=== PATIENT | female | born 1935 | race Two or more races ===

== ENCOUNTER 2017-02-12 23:14 | Inpatient (IN) | payer MEDICARE, BC ==
[~2017-02-12] VITALS: Ht 157.5 cm; Wt 50.8 kg
--- NOTE | 2017-02-12 23:25 | NUR ---
To bed 5 a 81 yo female bibra for increasing aloc x1. Upon arrival to er, patient is noted to be drowsy, arousable to name/verbal and tactile stimuli. Able to answer some questions and follow simple commands. Noted with o2 saturation on room at 91%. Encouraged patient to do breathing exercises, placed on o2 cannula inhalation at 2lpm per Dr Dickey's verbal order, satting at 98%. kept hob elevated. cardiac monitoring on. Safety measures in place. Comfort measures rendered. Gowned. Dr Dickey at bedside for eval.
[2017-02-12] MEDS ORDERED: IV NS 0.9% 500 ML BAG IV ONE (23:30)
[2017-02-12] MEDS ORDERED: IV SET PRIMARY 1 EA INFUS.SET MC ONE (23:31)
[2017-02-12] MEDS ORDERED: IV NS 0.9% 500 ML IV ONE (23:31)
--- NOTE | 2017-02-12 23:34 | NUR ---
Patient noted with left portacath, intact, patent, with good blood back flow. Blood samples collected and sent to lab.
--- NOTE | 2017-02-12 23:45 | NUR ---
urine collected via clean catch and called lab for clam picker.
[2017-02-12 23:52] LABS: HEMATOCRIT 28 % (33-45); HEMOGLOBIN 9.4 g/dL (11.5-14.8); LYMPHOCYTES # (AUTO) 0.3 /CMM (0.8-4.8); LYMPHOCYTES % (AUTO) 3.3 % (20.0-44.0); MEAN CORPUSCULAR HEMOGLOBIN 29 PG (26.0-33.0); MEAN CORPUSCULAR HGB CONC 33 g/dl (31.0-36.0); MEAN CORPUSCULAR VOLUME 85 fL (82-100); MONOCYTES # (AUTO) 0.3 /CMM (0.1-1.30); MONOCYTES % (AUTO) 2.9 % (2.0-12.0); NEUTROPHILS # (AUTO) 8.6 /CMM (1.8-8.9); NEUTROPHILS % (AUTO) 93.8 % (43.0-81.0); PLATELET COUNT (AUTO) 174 /CMM (150-450); RDW COEFFICIENT OF VARIATION 22.5 (11.5-15.0); RED BLOOD CELL COUNT(AUTO) 3.29 MIL/uL (4.0-5.2); WHITE BLOOD COUNT (AUTO) 9.2 K/uL (4.3-11.0)
[2017-02-13] VITALS (13 sets, daily range): BP systolic 85–125; BP diastolic 30–77
[2017-02-13 00:02] LABS: CARBON DIOXIDE 26 mmol/L (21-32); CHLORIDE 100 mmol/L (98-107); CREATININE 2.1 mg/dL (0.6-1.3); GLUCOSE 131 mg/dL (74-106); POTASSIUM 3.5 mmol/L (3.5-5.1); SODIUM SERUM 135 mmol/L (136-145); UREA NITROGEN, BLOOD 72 mg/dL (7-18)
[2017-02-13 00:05] LABS: INR 1.16 (0.87-1.13); PROTHROMBIN TIME 12.5 SECS (9.5-12.7)
[2017-02-13 00:09] LABS: ALANINE AMINOTRANSFERASE 31 U/L (12-78); ALBUMIN 2.2 g/dL (3.4-5.0); ALKALINE PHOSPHATASE 65 U/L (46-116); ASPARTATE AMINOTRANSFERASE 27 U/L (15-37); BILIRUBIN,DIRECT 0.1 mg/dL (0.0-0.2); BILIRUBIN,TOTAL 0.3 mg/dL (0.2-1.0)
[2017-02-13 00:11] LABS: TROPONIN I < 0.017 ng/mL (0.00-0.056)
[2017-02-13] MEDS ORDERED: IV NS 0.9% 1,000 ML ONE (00:20)
[2017-02-13] MEDS ORDERED: IV NS 0.9% 1,000 ML BAG IV ONE (00:30)
[2017-02-13 00:38] LABS: APPEARANCE,URINE CLOUDY (CLEAR); BILIRUBIN,URINE NEGATIVE (NEGATIVE); BLOOD, URINE 2+ Ery/uL (NEGATIVE); COLOR,URINE YELLOW (YELLOW); KETONES,URINE NEGATIVE (NEGATIVE); PH,URINE 5.5 (5.0-8.0); PROTEIN,URINE 2+ mg/dl (NEGATIVE); UGLUCOSE TRACE mg/dL (NEGATIVE)
[2017-02-13 00:39] LABS: LEUKOCYTE ESTERASE ,URINE 1+ (NEGATIVE); NITRITE, URINE NEGATIVE (NEGATIVE); UROBILINOGEN,URINE 0.2 EU/dL (0.2)
[2017-02-13 00:41] LABS: BACTERIA,URINE 4+ /HPF (None Seen); SQUAMOUS EPITHELIAL CELL,UR Few /HPF (None Seen); WBC,URINE 81-100 /HPF (0-3)
[2017-02-13] MEDS ORDERED: CEFTRIAXONE 1GM BAG (ER ONLY) 50 ML IV ONE (00:46)
[2017-02-13] MEDS ORDERED: IV SET PRIMARY PUMP SET 1 EA INFUS.SET MC ONE ×2 (00:47→03:06)
[2017-02-13] MEDS ORDERED: CEFTRIAXONE 1 G in IV D5W 50 ML IV ONE (01:00)
[2017-02-13] MEDS ORDERED: CARV6.252 PO (01:10)
[2017-02-13] MEDS ORDERED: ONDA4TAB8 SL (01:10)
[2017-02-13] MEDS ORDERED: FURO-144 PO (01:10)
[2017-02-13] MEDS ORDERED: WARF5TAB6 PO (01:10)
[2017-02-13] MEDS ORDERED: ACET-868 PO (01:10)
[2017-02-13] MEDS ORDERED: LACT1CAP89 PO (01:10)
[2017-02-13] MEDS ORDERED: CEFU250S PO (01:10)
[2017-02-13] MEDS ORDERED: PHEN-704 PO (01:10)
[2017-02-13] MEDS ORDERED: ESOM40CA PO (01:10)
--- NOTE | 2017-02-13 01:13 | NUR ---
Report Seema NEFF for admission and brendon.
--- NOTE | 2017-02-13 01:33 | NUR ---
Transported to tele bed 310-2 via als protocol, no incident noted. Seema NEFF at bedside.
--- NOTE | 2017-02-13 01:35 | NUR ---
RN NOTES ADMITTED A 81 YEARS OLD FEMALE PT FROM ER [facility]IA [facility] WITH PRIMARY DIAGNOSIS OF UTI UNDER DR CUETO. PT ALERT AND ORIENTED X2 WITH PERIODS OF CONFUSION. NO SOB, NOT IN DISTRESS, ON O2 INHALATION AT 2LPM VIA NC AND TOLERATED WELL. VITAL SIGNS STABLE, DENIES ANY PAIN AND DISCOMFORT AT THIS TIME. ATTACHED TO TELEMONITOR WHICH READS SINUS RHYTHM WITH HEART RATE AT 90. SKIN AND BODY ASSESSMENT DONE, WITH PICTURES TAKEN AND FILED IN THE CHART. SEEN AND EXAMINED BY DR CUETO, WITH ADMISSION ORDERS MADE AND CARRIED OUT. KEPT PT COMFORTABLE AND ATTENDED. ON RENAL DIET AND TOLERATED WELL. SAFETY MEASURES IN PLACE. WILL CONTINUE TO MONITOR PT.
[2017-02-13] MEDS ORDERED: HYDROCODONE/APAP 5/325MG 1 EACH TABLET PO PRN (02:00)
[2017-02-13] MEDS ORDERED: Z GUARD REMEDY 2 OZ OINT TP PRN (02:00)
[2017-02-13] MEDS ORDERED: CEFTRIAXONE 1 G in IV D5W 50 ML IV SCH (02:00)
[2017-02-13] MEDS ORDERED: MAGNESIUM HYDROXIDE 30 ML UDC PO PRN (02:00)
[2017-02-13] MEDS ORDERED: MAG HYDROX/AL HYDROX/SIMETH 30 ML UDC PO PRN (02:00)
[2017-02-13] MEDS ORDERED: ZOLPIDEM TARTRATE 5 MG TABLET PO PRN (02:00)
[2017-02-13] MEDS ORDERED: ACETAMINOPHEN 325 MG TABLET PO PRN (02:00)
[2017-02-13] MEDS ORDERED: ONDANSETRON HCL/PF 4 MG/2 ML VIAL IVP PRN (02:00)
--- NOTE | 2017-02-13 02:09 | NUR ---
RN NOTES ROCEPHIN 1GM DUE AT 0200 NOT ADMINISTERED, IT WAS GIVEN TO THE PT WHILE SHE'S STILL IN ER.
[2017-02-13] MEDS: IV NS 0.9% 1,000 ML IV PRN ×4 (03:16→23:33)
--- NOTE | 2017-02-13 07:11 | NUR ---
RN NOTES PT ASLEEP, BREATHING REGULAR AND UNLABORED, ON O2 INHALATION AT 2LPM VIA NC AND TOLERATED WELL. VITAL SIGNS STABLE, AFEBRILE. TELE MONITOR READS SINUS RHYTHM WITH HEART RATE AT 89. NO COMPLAIN OF PAIN, NO EPISODE OF NAUSEA AND VOMITING. PT CALM, QUIET AND COOPERATIVE WITH CARE. ASSISTED TO THE BATHROOM, WITH STEADY GAIT. SAFETY MEASURES IN PLACE. ALL NEEDS MET. WILL ENDORSE TO MORNING RN FOR CONTINUITY OF CARE.
--- NOTE | 2017-02-13 07:30 | NUR ---
AM RN NOTE Received patient sleeping comfortably in her bed arouses upon touch, no acute distress noted. On O 2 2L/min via NC resp even and non-labored. Skin warm and dry to touch. Bed in low locked position. Will continue to monitor.
[2017-02-13] MEDS: PANTOPRAZOLE 40 MG TABLET.DR PO SCH (08:36)
[2017-02-13] MEDS: CARVEDILOL 6.25 MG TABLET PO SCH ×2 (08:37→16:53)
[2017-02-13] MEDS ORDERED: WARFARIN SODIUM 5 MG TABLET PO SCH (09:00)
--- NOTE | 2017-02-13 11:24 | NUR ---
WOUND CARE CONSULT: PT PRESENTS WITH EDEMA TO LOWER EXTREMITIES. PT INCONTINENT. PT ON NATALIE PRESSURE REDISTRIBUTION MATTRESS. ALL SKIN PROTECTION RECOMMENDATIONS DISCUSSED WITH NURSING STAFF. IN AGREEMENT WITH PLAN OF CARE. Addendum: 02/13/17 at 1126 by NAI LOVE WNDNU Amended: Links added.
--- NOTE | 2017-02-13 13:29 | NUR ---
AM RN NOTE Per Gallito PATIENT AMBASSADOR no PT/1NR lab order needed for today. Continue same dose of Coumadin as ordered with PT/INR done yesterday (02/12/17).
[2017-02-13] MEDS: WARFARIN SODIUM 5 MG TABLET PO SCH (16:54)
--- NOTE | 2017-02-13 18:19 | NUR ---
AM RN NOTE Patient lying in her bed, no acute distress noted. LCW cath intact and patent. Bed in low locked position. Will continue to monitor.
--- NOTE | 2017-02-13 19:18 | NUR ---
AM RN NOTE Duplex order placed STAT per Joanna (Tech).
--- NOTE | 2017-02-13 19:30 | NUR ---
MS/RN OPENING NOTES PT ASLEEP, AROUSABLE. ON ROOM AIR, BREATHING EVEN AND UNLABORED. NO S/S OF DISTRESS NOTED. DENIES PAIN AT THIS TIME. IV TO LCW PATENT AND INTACT RUNNING IVF ORDERED. BED IN LOW/LOCKED POSITION WITH CALL LIGHT IN REACH. BED RAILS UPX2. WILL CONTINUE TO MONITOR
--- NOTE | 2017-02-13 20:33 | NUR ---
MS/RN NOTES PAGED DR. CUETO TO NOTIFY HIM OF THE RESULTS OF THE BLOOD CULTURE. AWAITING CALL BACK.
--- NOTE | 2017-02-13 20:38 | NUR ---
MS/RN NOTES SPOKE TO DR. CUETO ABOUT PT'S RESULTED BLOOD CULTURE. INFORMED HIM THAT SHE IS RECEIVING ROCEPHIN 1G AND IS CURRENTLY AFEBRILE. NO NEW ORDERS AT THIS TIME. JUST CONTINUE ROCEPHIN.
--- NOTE | 2017-02-13 20:58 | NUR ---
MS/RN NOTES TECH COMPLETED VENOUS DUPLEX OF RIGHT LOWER EXTREMITY
--- NOTE | 2017-02-13 22:24 | NUR ---
MS/RN NOTES PAGED DR. CUETO REGARDING PT'S DECREASED BP, MOST RECENT BP=87/30, HR=81 Addendum: 02/13/17 at 2243 by ETHAN GAMBOA RN SPOKED TO DR. CUETO. ORDERED 500ML BOLUS NS ONE TIME. PT ALREADY HAS 1,000 ML OF NS HANGING. WILL USE HANGING BAG TO ADMINISTER BOLUS.
[2017-02-13] MEDS ORDERED: IV NS 0.9% 500 ML IV ONE (23:00)
--- NOTE | 2017-02-13 23:34 | NUR ---
MS/RN NOTES IV BOLUS 500ML NS COMPLETED. RECHECKED BP=85/43, HR=86. DR. CUETO ON UNIT. INFORMED HIM OF LATEST RESULT AND THAT PT IS PLACE IN [place] POSITION. ORDERED ANOTHER 500ML BOLUS OF NS. SAW PT PRIOR TO LEAVING UNIT. NO ADDITIONAL ORDERS NOTED.
[2017-02-13] MEDS ORDERED: SECONDARY IV SET 1 EA INFUS.SET MC ONE (23:35)
[2017-02-13] MEDS: CEFTRIAXONE 1 G in IV D5W 50 ML IV SCH (23:58)
[2017-02-14 04:00] VITALS: BP 111/56
[2017-02-14 06:32] LABS: BASOPHILS % (AUTO) 0.1 % (0.0-2.0); EOSINOPHILS # (AUTO) 0.1 /CMM (0.0-0.7); EOSINOPHILS % (AUTO) 1.9 % (0.0-6.0); HEMATOCRIT 25 % (33-45); LYMPHOCYTES # (AUTO) 0.6 /CMM (0.8-4.8); LYMPHOCYTES % (AUTO) 13.7 % (20.0-44.0); MEAN CORPUSCULAR HEMOGLOBIN 28 PG (26.0-33.0); MEAN CORPUSCULAR HGB CONC 33 g/dl (31.0-36.0); MEAN CORPUSCULAR VOLUME 87 fL (82-100); MONOCYTES # (AUTO) 0.3 /CMM (0.1-1.30); MONOCYTES % (AUTO) 7.4 % (2.0-12.0); NEUTROPHILS # (AUTO) 3.3 /CMM (1.8-8.9); NEUTROPHILS % (AUTO) 76.9 % (43.0-81.0); PLATELET COUNT (AUTO) 125 /CMM (150-450); RED BLOOD CELL COUNT(AUTO) 2.83 MIL/uL (4.0-5.2); WHITE BLOOD COUNT (AUTO) 4.3 K/uL (4.3-11.0)
--- NOTE | 2017-02-14 07:02 | NUR ---
MS/RN NOTES CALLED TO INFORM ME THAT PT HAS CONFIRMED DVT TO THE RIGHT LOWER EXTREMITY. WILL ENDORSE TO DAY SHIFT RN AND EPIC GROUP.
[2017-02-14 07:08] LABS: CALCIUM, SERUM 7.3 mg/dL (8.5-10.1); CARBON DIOXIDE 20 mmol/L (21-32); CHLORIDE 112 mmol/L (98-107); CREATININE 1.3 mg/dL (0.6-1.3); GLUCOSE 100 mg/dL (74-106); MAGNESIUM 1.8 mg/dL (1.8-2.4); PHOSPHORUS 2.7 mg/dL (2.5-4.9); POTASSIUM 3.3 mmol/L (3.5-5.1); SODIUM SERUM 142 mmol/L (136-145); UREA NITROGEN, BLOOD 40 mg/dL (7-18)
--- NOTE | 2017-02-14 07:10 | NUR ---
MS/RN CLOSING NOTES PT ASLEEP, RESTING COMFORTABLY IN BED. EASILY AROUSABLE. ON 2LPM O2 VIA NC, BREATHING EVEN AND UNLABORED. NO S/S OF DISTRESS NOTED. IV TO LCW PATENT AND INTACT RUNNING IVF ORDERED. BED IN LOW/LOCKED POSITION WITH CALL LIGHT IN REACH. BED RAILS UPX2. NOTIFIED PAT SAVAGE ABOUT POSITIVE DVT RESULT TO RIGHT LOWER EXTREMITY. PAT TO PUT IN ORDERS. DAY SHIFT RN NOTIFIED. MADE PT COMFORTABLE THROUGHOUT SHIFT. ALL NEEDS MET AND ATTENDED. ENDORSED TO AM RN KEVIN.
--- NOTE | 2017-02-14 07:15 | NUR ---
AM RN NOTE Received patient sleeping comfortably in her bed arouses upon touch, no acute distress noted. On O 2 2L/min via NC resp even and non-labored. LCW cath intact and patent. Awaiting call back from [email or web address]. Bed in low locked position. Will continue to monitor.
[2017-02-14 08:00] VITALS: BP 117/46
[2017-02-14] MEDS: PANTOPRAZOLE 40 MG TABLET.DR PO SCH (08:07)
[2017-02-14] MEDS: CARVEDILOL 6.25 MG TABLET PO SCH ×2 (08:07→17:00)
--- NOTE | 2017-02-14 08:15 | NUR ---
AM RN NOTE Spoke with Yogesh (Pharmacist) to verify Heparin order.
[2017-02-14] MEDS ORDERED: HEPARIN SODIUM, PORCINE 5000 UNITS/1 ML VIAL IV ONE ×2 (08:30→08:34)
[2017-02-14] MEDS ORDERED: IV SET PRIMARY PUMP SET 1 EA INFUS.SET MC ONE (08:34)
[2017-02-14] MEDS: HEPARIN INFUSION/D5W 500 ML IV PRN ×2 (09:10→17:28)
--- NOTE | 2017-02-14 09:10 | NUR ---
AM RN NOTE Patient awake, denies any pain at this time. Instructions on heparin given by Lauren (Pharmacist). Heparin IV @ 1000 U started at this time as witnessed by another RN and ROD ([facility]). OK to use PTT results done on 02/12/17 per ROD. Ordered PTT, PT/INR Labs @ 1505 for today. Addendum: 02/14/17 at 1234 by SVITLANA MAYFIELD RN Heparin 4,400 U IV given prior starting heparin IV.
[2017-02-14] MEDS ORDERED: POTASSIUM CHLORIDE 20 MEQ TAB.PRT.SR PO SCH (11:00)
[2017-02-14 15:39] LABS: INR 1.27 (0.87-1.13); PROTHROMBIN TIME 13.8 SECS (9.5-12.7)
[2017-02-14 15:41] VITALS: BP 123/47
--- NOTE | 2017-02-14 15:51 | NUR ---
AM RN NOTE Received call from [facility] (Lab) with PTT 114 results. Stopped heparin drip, called Pharmacy spoke with Lauren. Per Lauren, stop heparin drip for 1 hr and start @ rate 850 U/hr and repeat PTT, PT/INR after 6 hrs.
[2017-02-14] MEDS: WARFARIN SODIUM 5 MG TABLET PO SCH (17:20)
--- NOTE | 2017-02-14 17:30 | NUR ---
AM RN NOTE Heparin drip started @ 850 U (17ml/hr) as witnessed by another RN. Pt denies any pain or discomfort at this time. Will continue to monitor.
--- NOTE | 2017-02-14 18:13 | NUR ---
AM RN NOTE Pt lying in her bed, no acute distress noted. LCW cath intact and patent, heparin drip @ 850 U (17ml/hr) continued as ordered. Will endorse care to next shift.
--- NOTE | 2017-02-14 18:30 | NUR ---
AM RN NOTE Ok to hold IV fluids until heparin is running per Dr. Garett Zhu.
[2017-02-14 20:00] VITALS: BP_SYST 117; BP_SYST 128; BP_DIAS 54; BP_DIAS 55
--- NOTE | 2017-02-14 20:00 | NUR ---
PATIENT IN BED, ALERT AND ORIENTED X2, WITH EPISODES OF CONFUSION, NO SOB, NO DISTRESS, DENIES ANY PAIN AT THIS TIME, ON HEPARIN DRIP AT 850 U/HR, NO BLEEDING NOTED, EDUCATED PATIENT TO REPORT ANY BLEEDING. HAS HX OF CHRONIC DIARRHEA, REMINDED PATIENT TO CALL FOR ASSISTANCE WHEN USING THE BEDSIDE COMMODE AND HEPARIN CANNOT BE STOPPED. NEEDS ATTENDED, AT THE BEDSIDE, CALL LIGHT WITHIN REACH.
[2017-02-14] MEDS: CEFTRIAXONE 1 G in IV D5W 50 ML IV SCH (23:14)
[2017-02-15 00:17] LABS: INR 1.29 (0.87-1.13)
--- NOTE | 2017-02-15 00:32 | NUR ---
APTT 76, ADJUSTED HEPARIN DRIP TO 750 U/HR, APTT DRAW AT 0600, WILL CONTINUE TO MONITOR.
[2017-02-15] MEDS: HEPARIN INFUSION/D5W 500 ML IV PRN ×2 (06:18)
--- NOTE | 2017-02-15 06:20 | NUR ---
HEPARIN DRIP BAG NOT SCANNED WHEN ADJUSTED AT 0000. CORRECTED ENTRY TO EMAR AT 0000.
--- NOTE | 2017-02-15 06:38 | NUR ---
PATIENT IN BED, ALERT AND AWAKE, WITH EPISODES OF FORGETFULNESS, NO SOB, NO DISTRESS, DENIES ANY PAIN AT THIS TIME, LCW PORT A CATH PATENT AND INFUSING WELL WITH HEPARIN. NO BLEEDING NOTED, EDUCATED PT TO REPORT ANY BLEEDING, FREQUENT DIARRHEA DURING SHIFT, KEPT SAFE AND COMFORTABLE, BED ALARM TURNED ON, CALL LIGHT WITHIN REACH.
[2017-02-15 07:04] LABS: BASOPHILS % (AUTO) 0.3 % (0.0-2.0); EOSINOPHILS # (AUTO) 0.1 /CMM (0.0-0.7); EOSINOPHILS % (AUTO) 1.4 % (0.0-6.0); HEMATOCRIT 25 % (33-45); INR 1.31 (0.87-1.13); LYMPHOCYTES # (AUTO) 0.8 /CMM (0.8-4.8); LYMPHOCYTES % (AUTO) 17.4 % (20.0-44.0); MEAN CORPUSCULAR HEMOGLOBIN 28 PG (26.0-33.0); MEAN CORPUSCULAR HGB CONC 32 g/dl (31.0-36.0); MEAN CORPUSCULAR VOLUME 87 fL (82-100); MONOCYTES # (AUTO) 0.4 /CMM (0.1-1.30); MONOCYTES % (AUTO) 8.4 % (2.0-12.0); NEUTROPHILS # (AUTO) 3.3 /CMM (1.8-8.9); NEUTROPHILS % (AUTO) 72.5 % (43.0-81.0); PLATELET COUNT (AUTO) 151 /CMM (150-450); PROTHROMBIN TIME 14.3 SECS (9.5-12.7); RDW COEFFICIENT OF VARIATION 23.3 (11.5-15.0); RED BLOOD CELL COUNT(AUTO) 2.83 MIL/uL (4.0-5.2); WHITE BLOOD COUNT (AUTO) 4.6 K/uL (4.3-11.0)
--- NOTE | 2017-02-15 07:48 | NUR ---
RN MS NOTES RECEIVED PATIENT IN BED, A/O X2, IN NO APPARENT DISTRESS, DENIES PAIN DENIES SOB, NO S/S OF BLEEDING NOTED. IV ACCESS ON LEFT CHEST WALL PATENT. PATIENT ON HEPARIN DRIP, INFUSING AT 750UNTITS/HR. ALL NEEDS MET, KEPT CLEAN AND DRY, BED ALARM ON, CALL LIGHT WITHIN REACH.
[2017-02-15 08:00] VITALS: BP 131/66
--- NOTE | 2017-02-15 08:00 | NUR ---
RN MS NOTES RECEIVED LAB RESULTS, APTT 46 PT 14.3 INR 1.31, NO HEPARIN DRIP ADJUSTMENT NEEDED, CONTINUE RATE OF 750 UNITS/HR. CONSULTED CHARGE NURSE, PER TRISH VELASCO ORDER APPT, PT/INR FOR TOMORROW IN AM, LABS ORDERED. WILL CONTINUE TO MONITOR.
[2017-02-15] MEDS: PANTOPRAZOLE 40 MG TABLET.DR PO SCH (08:31)
[2017-02-15] MEDS: CARVEDILOL 6.25 MG TABLET PO SCH ×2 (08:31→16:31)
[2017-02-15 09:22] LABS: CHLORIDE 112 mmol/L (98-107); POTASSIUM 3.3 mmol/L (3.5-5.1); SODIUM SERUM 141 mmol/L (136-145)
[2017-02-15 09:23] LABS: CALCIUM, SERUM 7.9 mg/dL (8.5-10.1); CREATININE 1.3 mg/dL (0.6-1.3); GLUCOSE 95 mg/dL (74-106); MAGNESIUM 1.8 mg/dL (1.8-2.4); PHOSPHORUS 1.9 mg/dL (2.5-4.9); UREA NITROGEN, BLOOD 21 mg/dL (7-18)
[2017-02-15 09:45] LABS: CARBON DIOXIDE 16 mmol/L (21-32)
[2017-02-15] MEDS ORDERED: LEVOFLOXACIN (500MG) 500 MG TABLET PO SCH (12:00)
[2017-02-15] MEDS ORDERED: POTASSIUM CL. PREMIX PERIPHER. 50 ML IV SCH (12:30)
[2017-02-15] MEDS ORDERED: LEVOFLOXACIN (500MG) 500 MG TABLET PO ONE (12:30)
[2017-02-15] MEDS ORDERED: FEE PK DOSING 1 MIN EA MC ONE (12:34)
[2017-02-15] MEDS ORDERED: SECONDARY IV SET 1 EA INFUS.SET MC ONE (12:56)
[2017-02-15] MEDS: VANCOMYCIN 1 GM in IV D5W 250 ML IV ONE ×2 (12:57→16:32)
--- NOTE | 2017-02-15 13:35 | NUR ---
RN MS NOTES PATIENT WITH ORDER FOR IV POTASSIUM AND VANCO. PATIENT HAS A RUSTY CATH INFUSING WITH HEPARIN DRIP. PERIPHERAL ACCESS COULD NOT BE ESTABLISHED.
[2017-02-15] MEDS ORDERED: POTASSIUM CHLORIDE 20 MEQ POWDER PACKET PO SCH (15:30)
[2017-02-15] MEDS ORDERED: K PHOS NEUTRAL 250 MG TABLET PO ONE (15:30)
[2017-02-15 16:00] VITALS: BP 119/61
[2017-02-15] MEDS: APIXABAN 2.5 MG TABLET PO SCH (17:11)
--- NOTE | 2017-02-15 18:55 | NUR ---
RN MS CLOSING NOTES PATIENT IN BED, A/0 X 2-3, IN NO APPARENT DISTRESS, DENIES PAIN DENIES SOB. HEPARIN DRIP DISCONTINUED, COUMADIN DISCONTINUED, STARTED ON ELIQUIS 2.5MG. LEFT CHEST WALL RUSTY CATH PATENT. NO S/S OF BLEEDING NOTED. PATIENT HAD 10 SMALL LOOSE BOWEL MOVEMENTS, STOOL COLLECTED FOR C-DIFF. WILL ENDORSE CARE TO PM SHIFT.
[2017-02-15] MEDS ORDERED: POTASSIUM CHLORIDE 20 MEQ POWDER PACKET PO ONE (19:30)
--- NOTE | 2017-02-15 19:45 | NUR ---
RN OPENING NOTES RECEIVED REPORT FROM VANIA RNREVA. FOUND Pt ASLEEP, WITH EQUAL CHEST RISE AND FALL. NO S/S OF ACUTE DISTRESS OR SOB NOTED. NO SIGNS OF PAIN NOTED. IV ACCESS LCW PORTACATH, NO IV ACCESS ON ARMS (UNSUCCESSFUL TO FIND GOOD VEINS IN ARMS TO USE). SAFETY MEASURES IN PLACE. BED LOW, LOCKED, HOB ELEVATED, SIDE RAILS UP, CALL LIGHT AND BEDSIDE TABLE WITHIN REACH. WILL CONTINUE TO MONITOR Pt THROUGHOUT THE NIGHT FOR SAFETY.
[2017-02-15 20:00] VITALS: BP 133/64
--- NOTE | 2017-02-15 23:19 | NUR ---
RN NOTES Pt REFUSED PICTURES TO BE TAKEN TONIGHT.
[2017-02-16 06:35] LABS: EOSINOPHILS # (AUTO) 0.1 /CMM (0.0-0.7); EOSINOPHILS % (AUTO) 1.9 % (0.0-6.0); HEMATOCRIT 27 % (33-45); HEMOGLOBIN 8.9 g/dL (11.5-14.8); LYMPHOCYTES % (AUTO) 20.6 % (20.0-44.0); MEAN CORPUSCULAR HEMOGLOBIN 29 PG (26.0-33.0); MEAN CORPUSCULAR HGB CONC 33 g/dl (31.0-36.0); MEAN CORPUSCULAR VOLUME 87 fL (82-100); MONOCYTES # (AUTO) 0.4 /CMM (0.1-1.30); MONOCYTES % (AUTO) 8.4 % (2.0-12.0); NEUTROPHILS # (AUTO) 3.3 /CMM (1.8-8.9); NEUTROPHILS % (AUTO) 69.1 % (43.0-81.0); PLATELET COUNT (AUTO) 179 /CMM (150-450); RED BLOOD CELL COUNT(AUTO) 3.08 MIL/uL (4.0-5.2); WHITE BLOOD COUNT (AUTO) 4.7 K/uL (4.3-11.0)
[2017-02-16 06:37] LABS: CALCIUM, SERUM 8.2 mg/dL (8.5-10.1); CARBON DIOXIDE 17 mmol/L (21-32); CHLORIDE 115 mmol/L (98-107); CREATININE 1.2 mg/dL (0.6-1.3); GLUCOSE 95 mg/dL (74-106); MAGNESIUM 1.6 mg/dL (1.8-2.4); POTASSIUM 3.4 mmol/L (3.5-5.1); SODIUM SERUM 144 mmol/L (136-145); UREA NITROGEN, BLOOD 13 mg/dL (7-18)
--- NOTE | 2017-02-16 06:45 | NUR ---
RN CLOSING NOTES NO SIGNIFICANT CHANGES DURING THE NIGHT. NO S/S OF ACUTE DISTRESS OR SOB NOTED. ALL NEEDS MET AND ATTENDED TO. SAFETY MEASURES CARRIED OUT. WILL ENDORSE TO DAYSHIFT RN FOR Pt's KEVIN.
--- NOTE | 2017-02-16 07:30 | NUR ---
PATIENT RECEIVED RESTING COMFORTABLY IN BED. NO S/S OR C/O PAIN OR DISTRESS NOTED. SIDE RAILS UP X2, CALL LIGHT LEFT WITHIN REACH. WILL CONTINUE PLAN OF CARE.
[2017-02-16 08:00] VITALS: BP 122/65
[2017-02-16] MEDS: PANTOPRAZOLE 40 MG TABLET.DR PO SCH (09:37)
[2017-02-16] MEDS: APIXABAN 2.5 MG TABLET PO SCH ×2 (09:37→16:41)
[2017-02-16] MEDS: CARVEDILOL 6.25 MG TABLET PO SCH ×2 (09:39→16:41)
[2017-02-16] MEDS ORDERED: POTASSIUM CHLORIDE 20 MEQ TAB.PRT.SR PO ONE (10:30)
[2017-02-16] MEDS ORDERED: SECONDARY IV SET 1 EA INFUS.SET MC ONE (10:37)
[2017-02-16] MEDS: Magnesium 1GM/D5W 100ML PREMIX 100 ML IV SCH ×4 (10:46→13:30)
[2017-02-16] MEDS: IV NS 0.9% 1,000 ML IV PRN (12:13)
[2017-02-16] MEDS ORDERED: NITR100C6 PO (12:41)
[2017-02-16] MEDS ORDERED: APIX2.5T PO (12:41)
[2017-02-16] MEDS ORDERED: LEVO500T15 PO (12:41)
[2017-02-16] MEDS ORDERED: LEVOFLOXACIN (250MG) 250 MG TABLET PO SCH (13:00)
[2017-02-16] MEDS ORDERED: VANCOMYCIN 0.75 GM in IV D5W 250 ML IV SCH (13:00)
[2017-02-16] MEDS: BOOST PLUS FOOD-VANILLA 237 ML BOX PO SCH ×2 (13:30→18:06)
[2017-02-16] MEDS: Potassium Phosphate meq 11 MEQ in IV D5W 100 ML IV SCH ×2 (13:30→14:24)
[2017-02-16 16:00] VITALS: BP 132/79
[2017-02-16 16:41] VITALS: BP 132/69
--- NOTE | 2017-02-16 18:03 | NUR ---
DISCHARGE INSTRUCTIONS GIVEN ORDERED. ENCOURAGED TO FOLLOW UP WITH PMD INSTRUCTED. ALL QUESTIONS AND CONCERNS ADDRESSED. PATIENT VERBALIZED UNDERSTANDING. MEDICATION RECONCILIATION FORM COMPLETED AND COPY GIVEN TO PATIENT. PATIENT TAKEN TO VEHICLE VIA WHEELCHAIR WITH ALL PERSONAL BELONGINGS, ACCOMPANIED BY STAFF AND FAMILY MEMBER. NO DISTRESS NOTED AT TIME OF DEPARTURE.
== END 2017-02-16 18:03 | disposition home or self-care (01) | DRG 871 ==
LOC: ER 23:16 → TELE 02-13 01:11 → MED 02-13 09:19
PROVIDERS: ADMIT Internal Medicine; ATTEND Internal Medicine
DX: A41.9 Sepsis, unspecified organism (principal); I50.33 Acute on chronic diastolic (congestive) heart failure; G92 Toxic encephalopathy; I13.0 Hypertensive heart and chronic kidney disease with heart failure and stage 1 through stage 4 chronic kidney disease, or unspecified chronic kidney disease; N17.9 Acute kidney failure, unspecified; N39.0 Urinary tract infection, site not specified; K52.0 Gastroenteritis and colitis due to radiation; I27.2 Other secondary pulmonary hypertension; N18.9 Chronic kidney disease, unspecified; I48.0 Paroxysmal atrial fibrillation; D63.8 Anemia in other chronic diseases classified elsewhere; E86.9 Volume depletion, unspecified; I25.10 Atherosclerotic heart disease of native coronary artery without angina pectoris; Z79.01 Long term (current) use of anticoagulants; Z86.718 Personal history of other venous thrombosis and embolism; Z87.440 Personal history of urinary (tract) infections; Z90.49 Acquired absence of other specified parts of digestive tract; J44.9 Chronic obstructive pulmonary disease, unspecified; B96.89 Other specified bacterial agents as the cause of diseases classified elsewhere; I36.1 Nonrheumatic tricuspid (valve) insufficiency; N26.1 Atrophy of kidney (terminal)
CPT/HCPCS: 36415; 71010-TC; 80048-TC; 80076-TC; 81000-TC; 83605-TC; 83735-TC; 84100-TC; 84484-TC; 85025-TC; 85610-TC; 85730-TC; 87040-TC; 87081-TC; 87086-TC; 87186-TC; 93971-TC; 94799-TC; A4606; J0696; J1644; J3370; J3475; J3490; J7030; J7040; J7060; Z7610